=== PATIENT | female | born 1990 | race Caucasian/White ===

== ENCOUNTER 2021-03-30 08:48 | Emergency (ER) | payer OTHER ==
[~2021-03-30 08:48] MED LIST: AUGMENTIN 875-1 EACH PO; CLEOCIN HCL300 MG PO; IBUPROFEN600 MG PO; NORFLEX 100 MG100 MG PO
== END 2021-03-30 10:40 | disposition left against medical advice (07) ==
LOC: ER1 08:48
DX: G89.29 Other chronic pain (principal); F17.210 Nicotine dependence, cigarettes, uncomplicated; Z86.19 Personal history of other infectious and parasitic diseases
CPT/HCPCS: 81001; 84703; 99283; J1885